=== PATIENT | male | born 1950 | race Asian ===

== ENCOUNTER → 2023-01-22 | Outpatient (CLI) | payer OTHER ==
[2023-01-22 09:47] LABS: ANION GAP 6 mmol/L (8-16); CARBON DIOXIDE 29 mmol/L (22-29); CHLORIDE 105 mmol/L (98-107); CREATININE 0.86 mg/dL (0.60-1.30); GLUCOSE,RANDOM 86 mg/dL (70-110); POTASSIUM 3.7 mmol/L (3.5-5.1); SODIUM SERUM 140 mmol/L (136-145); UREA NITROGEN, BLOOD 18 mg/dL (7-18)
[2023-01-22 09:48] LABS: ALANINE AMINOTRANSFERASE 34 U/L (12-78); ALBUMIN 4.1 g/dL (3.4-5.0); ALKALINE PHOSPHATASE 58 U/L (46-116); ASPARTATE AMINOTRANSFERASE 37 U/L (15-37); BILIRUBIN,TOTAL 0.7 mg/dL (0.1-1.0); CALCIUM, TOTAL 9.3 mg/dL (8.8-10.5); GLOMERULAR FILTR. RATE CALC > 60 mL/min (>60); TOTAL PROTEIN, SERUM 7.3 g/dL (6.4-8.2)
[2023-01-22 09:52] LABS: APPEARANCE,URINE CLEAR (CLEAR); BILIRUBIN,URINE NEGATIVE (NEGATIVE); GLUCOSE, URINE (UA) NEGATIVE (NEGATIVE); LEUKOCYTE ESTERASE ,URINE NEGATIVE (NEGATIVE); NITRATE,URINE NEGATIVE (NEGATIVE); OCCULT BLOOD,URINE NEGATIVE (NEGATIVE); PH,URINE 5.5 (5.0-8.0); PROTEIN,URINE NEGATIVE (NEGATIVE); SPECIFIC GRAVITIY, URINE 1.019 (1.003-1.030); UROBILINOGEN,URINE <=1.0 mg/dL (<=1.0)
== END | disposition home or self-care (01) ==
LOC: LABMN 08:58
PROVIDERS: ATTEND Chiropractor
DX: E11.9 Type 2 diabetes mellitus without complications (principal)
CPT/HCPCS: 80053; 81003